=== PATIENT | female | born 1960 | race Caucasian/White ===

== ENCOUNTER 2018-09-30 09:58 | Inpatient (IN) | payer OTHER ==
[~2018-09-30] VITALS: Ht 162.6 cm; Wt 89.4 kg
[2018-09-30] MEDS ORDERED: LURA60TA PO (10:14)
[2018-09-30] MEDS ORDERED: CITA-106 PO (10:14)
[2018-09-30] MEDS ORDERED: ARIP5TAB8 PO (10:14)
[2018-09-30] MEDS ORDERED: ONDANSETRON HCL 4 MG/2 ML VIAL IVP ONE (11:15)
[2018-09-30] MEDS ORDERED: DICYCLOMINE HCL 20 MG TABLET PO ONE (11:15)
[2018-09-30] MEDS ORDERED: SODIUM CHLORIDE 0.9% 100 ML ONE (11:31)
[2018-09-30] MEDS ORDERED: IOVERSOL 350 MG/ML 150 ML VIAL ONE (11:31)
[2018-09-30 11:37] LABS: BASOPHILS % (AUTO) 0.5 % (0.0-2.0); EOSINOPHILS % (AUTO) 1.6 % (1.0-6.0); HEMATOCRIT 39.2 % (36-46); HEMOGLOBIN 13.2 g/dL (12.0-16.0); LYMPHOCYTES # (AUTO) 1.6 K/uL (1.0-4.8); LYMPHOCYTES % (AUTO) 15.8 % (22.0-44.0); MEAN CORPUSCULAR HEMOGLOBIN 30.2 pg (26.0-34.0); MEAN CORPUSCULAR HGB CONC 33.7 G/dL (31.0-37.0); MEAN CORPUSCULAR VOLUME 89 fL (80-100); MONOCYTES # (AUTO) 0.8 K/uL (0.1-1.0); MONOCYTES % (AUTO) 8.3 % (2.0-9.0); NEUTROPHILS # (AUTO) 7.3 K/uL (1.8-7.7); NEUTROPHILS % (AUTO) 73.8 % (40.0-70.0); PLATELET COUNT (AUTO) 253 K/uL (150-450); RED BLOOD CELL COUNT(AUTO) 4.39 MIL/uL (4.00-5.20); RED CELL DISTRIBUTION WIDTH 12.9 % (11.5-14.5)
[2018-09-30 11:48] LABS: ANION GAP 5 mmol/L (8-16); CALCIUM, TOTAL 9.2 mg/dL (8.8-10.5); CARBON DIOXIDE 32 mmol/L (22-29); CHLORIDE 97 mmol/L (98-107); CREATININE 0.72 mg/dL (0.60-1.30); GLOMERULAR FILTR. RATE CALC > 60 mL/min (>60); GLUCOSE,RANDOM 97 mg/dL (70-110); POTASSIUM 3.3 mmol/L (3.5-5.1); SODIUM SERUM 134 mmol/L (136-145); UREA NITROGEN, BLOOD 9 mg/dL (7-18)
[2018-09-30 11:56] LABS: ALANINE AMINOTRANSFERASE 94 U/L (12-78); ALBUMIN 2.7 g/dL (3.4-5.0); ALKALINE PHOSPHATASE 133 U/L (46-116); ASPARTATE AMINOTRANSFERASE 45 U/L (15-37); BILIRUBIN,TOTAL 0.4 mg/dL (0.1-1.0); LIPASE 103 U/L (73-393); TOTAL PROTEIN, SERUM 7.5 g/dL (6.4-8.2)
[2018-09-30 12:45] LABS: APPEARANCE,URINE CLEAR (CLEAR); BILIRUBIN,URINE NEGATIVE (NEGATIVE); GLUCOSE, URINE (UA) NEGATIVE (NEGATIVE); KETONES,URINE NEGATIVE (NEGATIVE); LEUKOCYTE ESTERASE ,URINE NEGATIVE (NEGATIVE); NITRATE,URINE NEGATIVE (NEGATIVE); OCCULT BLOOD,URINE SMALL (NEGATIVE); PROTEIN,URINE NEGATIVE (NEGATIVE); UROBILINOGEN,URINE 0.2 mg/dL (<=1.0)
[2018-09-30 12:49] LABS: BACTERIA,URINE None Seen /HPF (None Seen); RBC,URINE 0-2 /HPF (0-2); SQUAMOUS EPITHELIAL CELL,UR Few /LPF (None Seen); WBC,URINE None Seen /HPF (0-5)
[2018-09-30] MEDS ORDERED: MetroNIDAZOLE 500 MG/NACL 100 ML IV ONE (13:45)
[2018-09-30] MEDS ORDERED: CIPROFLOXACIN 400 MG/D5% WATER 200 ML IV ONE (13:45)
[2018-09-30] MEDS ORDERED: SODIUM CHLORIDE 0.9% 1,000 ML IV ONE ×2 (13:45→15:15)
[2018-09-30] MEDS ORDERED: ACETAMINOPHEN 325 MG TABLET PO PRN ×2 (15:00→15:15)
[2018-09-30] MEDS ORDERED: 0.9% SODIUM CHLORIDE 10 ML SYRINGE IVP PRN (15:00)
[2018-09-30] MEDS ORDERED: ONDANSETRON HCL 4 MG/2 ML VIAL IVP PRN (15:00)
[2018-09-30] MEDS ORDERED: BISACODYL 10 MG RECTAL RECTAL SUPPOSITORY PR PRN (15:15)
[2018-09-30] MEDS ORDERED: ZOLPIDEM TARTRATE 5 MG TABLET PO PRN (15:15)
[2018-09-30] MEDS ORDERED: MAGNESIUM HYDROXIDE SUSPENSION 30 ML UDCUP PO PRN (15:15)
[2018-09-30] MEDS ORDERED: HYDROCODONE/ACETAMINOPHEN 5-325 MG TABLET PO PRN (15:15)
[2018-09-30] MEDS ORDERED: POTASSIUM CHL 10 MEQ/WATER 50 ML IV PRN (15:15)
[2018-09-30] MEDS ORDERED: MORPHINE SULFATE 4 MG/ML SYRINGE IVP PRN (15:15)
[2018-09-30] MEDS: HEPARIN SODIUM,PORCINE 5,000 UNITS/ML VIAL SQ SCH ×2 (16:24→23:35)
[2018-09-30] MEDS: POTASSIUM CHLORIDE 20 MEQ ER TABLET PO PRN (16:50)
[2018-09-30 17:19] VITALS: BP 99/65
[2018-09-30] MEDS: DOCUSATE SODIUM 100 MG CAPSULE PO SCH (20:00)
[2018-09-30 20:10] VITALS: BP 111/64
[2018-09-30] MEDS: MetroNIDAZOLE 500 MG/NACL 100 ML IV SCH (22:30)
[2018-09-30 23:41] VITALS: BP 104/58
[2018-10-01] MEDS: CIPROFLOXACIN 400 MG/D5% WATER 200 ML IV SCH ×2 (02:47→17:12)
[2018-10-01 04:54] VITALS: BP 106/59
[2018-10-01] MEDS: MetroNIDAZOLE 500 MG/NACL 100 ML IV SCH ×3 (05:33→21:53)
[2018-10-01 06:26] LABS: BASOPHILS % (AUTO) 0.3 % (0.0-2.0); EOSINOPHILS % (AUTO) 1.4 % (1.0-6.0); HEMATOCRIT 35.8 % (36-46); HEMOGLOBIN 12.3 g/dL (12.0-16.0); LYMPHOCYTES # (AUTO) 1.2 K/uL (1.0-4.8); LYMPHOCYTES % (AUTO) 12.9 % (22.0-44.0); MEAN CORPUSCULAR HEMOGLOBIN 30.5 pg (26.0-34.0); MEAN CORPUSCULAR HGB CONC 34.4 G/dL (31.0-37.0); MEAN CORPUSCULAR VOLUME 89 fL (80-100); MONOCYTES # (AUTO) 0.8 K/uL (0.1-1.0); MONOCYTES % (AUTO) 8.7 % (2.0-9.0); NEUTROPHILS # (AUTO) 7.1 K/uL (1.8-7.7); NEUTROPHILS % (AUTO) 76.7 % (40.0-70.0); PLATELET COUNT (AUTO) 246 K/uL (150-450); RED BLOOD CELL COUNT(AUTO) 4.04 MIL/uL (4.00-5.20); RED CELL DISTRIBUTION WIDTH 12.8 % (11.5-14.5)
[2018-10-01 06:58] LABS: ALANINE AMINOTRANSFERASE 70 U/L (12-78); ALBUMIN 2.3 g/dL (3.4-5.0); ALKALINE PHOSPHATASE 118 U/L (46-116); ANION GAP 6 mmol/L (8-16); ASPARTATE AMINOTRANSFERASE 31 U/L (15-37); BILIRUBIN,TOTAL 0.3 mg/dL (0.1-1.0); CALCIUM, TOTAL 8.9 mg/dL (8.8-10.5); CARBON DIOXIDE 29 mmol/L (22-29); CHLORIDE 103 mmol/L (98-107); GLOMERULAR FILTR. RATE CALC > 60 mL/min (>60); GLUCOSE,RANDOM 98 mg/dL (70-110); POTASSIUM 3.8 mmol/L (3.5-5.1); SODIUM SERUM 138 mmol/L (136-145); TOTAL PROTEIN, SERUM 6.8 g/dL (6.4-8.2); UREA NITROGEN, BLOOD 5 mg/dL (7-18)
[2018-10-01 08:00] VITALS: BP 109/68
[2018-10-01] MEDS: HEPARIN SODIUM,PORCINE 5,000 UNITS/ML VIAL SQ SCH ×3 (08:00→23:41)
[2018-10-01 11:34] VITALS: BP 118/69
[2018-10-01] MEDS: DOCUSATE SODIUM 100 MG CAPSULE PO SCH ×2 (15:45→20:29)
[2018-10-01] MEDS: PANTOPRAZOLE SODIUM 40 MG DR TABLET PO SCH (15:45)
[2018-10-01 16:00] VITALS: BP 119/67
[2018-10-01] MEDS ORDERED: BUPIVACAINE 0.25%/EPI 1:200,000/PF 10 ML VIAL ONE (17:35)
[2018-10-01] MEDS ORDERED: SODIUM CHLORIDE 0.9% 1,000 ML IV ONE (17:35)
[2018-10-01] MEDS ORDERED: RINGERS SOLUTION,LACTATED 1,000 ML IV ONE (17:36)
[2018-10-01] MEDS ORDERED: ACETAMINOPHEN 1000 MG/ISO-OSM 100 ML IV ONE (17:44)
[2018-10-01] MEDS ORDERED: LIDOCAINE/PF 2% 5 ML VIAL ONE (18:14)
[2018-10-01] MEDS ORDERED: DEXAMETHASONE SOD PHOS 4 MG/ML VIAL ONE (18:14)
[2018-10-01] MEDS ORDERED: HYDROmorphone 2 MG/ML SYRINGE IVP PRN (19:45)
[2018-10-01] MEDS ORDERED: OxyCODONE HCL/ACETAMINOPHEN 10-325 MG TABLET PO PRN (19:45)
[2018-10-01 20:12] VITALS: BP 110/65
[2018-10-01] MEDS: ONDANSETRON HCL 4 MG/2 ML VIAL IVP PRN (20:25)
[2018-10-01] MEDS: ACETAMINOPHEN 500 MG TABLET PO SCH (23:41)
[2018-10-01 23:47] VITALS: BP 113/65
[2018-10-02] MEDS: CIPROFLOXACIN 400 MG/D5% WATER 200 ML IV SCH ×2 (03:05→15:44)
[2018-10-02] MEDS: KETOROLAC TROMETHAMINE 30 MG/ML VIAL IVP SCH ×4 (03:06→21:05)
[2018-10-02 04:28] VITALS: BP 103/61
[2018-10-02] MEDS: ACETAMINOPHEN 500 MG TABLET PO SCH ×3 (05:27→18:04)
[2018-10-02] MEDS: MetroNIDAZOLE 500 MG/NACL 100 ML IV SCH ×3 (05:27→21:04)
[2018-10-02] MEDS ORDERED: ROCURONIUM BROMIDE 10 MG/ML 5 ML VIAL IVP ONE (05:34)
[2018-10-02] MEDS ORDERED: MIDAZOLAM HCL 2 MG/2 ML VIAL IVP ONE (05:34)
[2018-10-02] MEDS ORDERED: SUCCINYLCHOLINE CHLORIDE 20 MG/ML 10 ML VIAL IVP ONE (05:34)
[2018-10-02] MEDS ORDERED: LIDOCAINE/PF 2% 5 ML VIAL IM ONE (05:34)
[2018-10-02] MEDS ORDERED: KETAMINE HCL 50 MG/ML 10 ML VIAL IVP ONE (05:34)
[2018-10-02] MEDS ORDERED: KETOROLAC TROMETHAMINE 60 MG/2 ML VIAL IM ONE (05:34)
[2018-10-02] MEDS ORDERED: PROPOFOL 1% 20 ML VIAL IVP ONE (05:34)
[2018-10-02] MEDS ORDERED: ONDANSETRON HCL 4 MG/2 ML VIAL IVP ONE (05:34)
[2018-10-02] MEDS ORDERED: GLYCOPYRROLATE 0.2 MG/ML VIAL IM ONE (05:34)
[2018-10-02] MEDS ORDERED: NEOSTIGMINE METHYLSULFATE 1 MG/ML 10 ML VIAL IVP ONE (05:34)
[2018-10-02 05:50] LABS: BASOPHILS % (AUTO) 0.1 % (0.0-2.0); EOSINOPHILS % (AUTO) 0 % (1.0-6.0); HEMATOCRIT 38.3 % (36-46); HEMOGLOBIN 13.3 g/dL (12.0-16.0); LYMPHOCYTES # (AUTO) 0.8 K/uL (1.0-4.8); LYMPHOCYTES % (AUTO) 5.5 % (22.0-44.0); MEAN CORPUSCULAR HEMOGLOBIN 31.1 pg (26.0-34.0); MEAN CORPUSCULAR HGB CONC 34.6 G/dL (31.0-37.0); MEAN CORPUSCULAR VOLUME 90 fL (80-100); MONOCYTES # (AUTO) 0.5 K/uL (0.1-1.0); MONOCYTES % (AUTO) 3.8 % (2.0-9.0); NEUTROPHILS # (AUTO) 12.4 K/uL (1.8-7.7); PLATELET COUNT (AUTO) 254 K/uL (150-450); RED BLOOD CELL COUNT(AUTO) 4.26 MIL/uL (4.00-5.20); RED CELL DISTRIBUTION WIDTH 12.7 % (11.5-14.5)
[2018-10-02 05:53] LABS: NEUTROPHILS % (AUTO) 90.6 % (40.0-70.0)
[2018-10-02 06:03] LABS: CALCIUM, TOTAL 9.2 mg/dL (8.8-10.5); CREATININE 0.96 mg/dL (0.60-1.30); POTASSIUM 3.4 mmol/L (3.5-5.1)
[2018-10-02] MEDS ORDERED: SODIUM CHLORIDE 0.9% 500 ML IV ONE (06:20)
[2018-10-02] MEDS: POTASSIUM CHLORIDE 20 MEQ ER TABLET PO PRN (06:24)
[2018-10-02 07:45] VITALS: BP 98/57
[2018-10-02] MEDS: PANTOPRAZOLE SODIUM 40 MG DR TABLET PO SCH (08:41)
[2018-10-02] MEDS: HEPARIN SODIUM,PORCINE 5,000 UNITS/ML VIAL SQ SCH ×2 (08:41→15:44)
[2018-10-02] MEDS: DOCUSATE SODIUM 100 MG CAPSULE PO SCH ×2 (08:41→21:05)
[2018-10-02 13:10] VITALS: BP 106/64
[2018-10-02 15:58] VITALS: BP 116/71
[2018-10-02] MEDS: ONDANSETRON HCL 4 MG/2 ML VIAL IVP PRN (18:05)
[2018-10-02 20:02] VITALS: BP 104/61
[2018-10-03 00:22] VITALS: BP 98/53
[2018-10-03] MEDS: HEPARIN SODIUM,PORCINE 5,000 UNITS/ML VIAL SQ SCH ×3 (01:16→16:00)
[2018-10-03] MEDS: ACETAMINOPHEN 500 MG TABLET PO SCH ×3 (01:16→12:00)
[2018-10-03] MEDS: KETOROLAC TROMETHAMINE 30 MG/ML VIAL IVP SCH ×2 (02:55→08:22)
[2018-10-03] MEDS: CIPROFLOXACIN 400 MG/D5% WATER 200 ML IV SCH ×2 (02:55→15:28)
[2018-10-03 05:01] VITALS: BP 104/63
[2018-10-03] MEDS: MetroNIDAZOLE 500 MG/NACL 100 ML IV SCH ×2 (05:56→14:14)
[2018-10-03 07:50] LABS: BASOPHILS % (AUTO) 0.4 % (0.0-2.0); HEMATOCRIT 34.9 % (36-46); HEMOGLOBIN 11.9 g/dL (12.0-16.0); LYMPHOCYTES # (AUTO) 1.9 K/uL (1.0-4.8); LYMPHOCYTES % (AUTO) 17.2 % (22.0-44.0); MEAN CORPUSCULAR HEMOGLOBIN 30.3 pg (26.0-34.0); MEAN CORPUSCULAR VOLUME 89 fL (80-100); MONOCYTES # (AUTO) 0.7 K/uL (0.1-1.0); MONOCYTES % (AUTO) 6.1 % (2.0-9.0); NEUTROPHILS # (AUTO) 8.3 K/uL (1.8-7.7); NEUTROPHILS % (AUTO) 75.3 % (40.0-70.0); PLATELET COUNT (AUTO) 236 K/uL (150-450); RED BLOOD CELL COUNT(AUTO) 3.92 MIL/uL (4.00-5.20); RED CELL DISTRIBUTION WIDTH 13.1 % (11.5-14.5)
[2018-10-03 07:57] LABS: ANION GAP 5 mmol/L (8-16); CALCIUM, TOTAL 8.7 mg/dL (8.8-10.5); CARBON DIOXIDE 29 mmol/L (22-29); CHLORIDE 103 mmol/L (98-107); CREATININE 0.71 mg/dL (0.60-1.30); GLOMERULAR FILTR. RATE CALC > 60 mL/min (>60); GLUCOSE,RANDOM 104 mg/dL (70-110); POTASSIUM 3.8 mmol/L (3.5-5.1); SODIUM SERUM 137 mmol/L (136-145); UREA NITROGEN, BLOOD 8 mg/dL (7-18)
[2018-10-03 08:20] VITALS: BP 112/61
[2018-10-03] MEDS: PANTOPRAZOLE SODIUM 40 MG DR TABLET PO SCH (08:21)
[2018-10-03] MEDS: DOCUSATE SODIUM 100 MG CAPSULE PO SCH (08:21)
[2018-10-03 12:08] VITALS: BP 117/70
[2018-10-03] MEDS ORDERED: CIPR-278 PO (14:34)
[2018-10-03] MEDS ORDERED: METR500 PO (14:35)
[2018-10-03 15:33] VITALS: BP 128/72
== END 2018-10-03 17:50 | disposition home or self-care (01) | DRG 233 ==
LOC: EMS 09:59 → 6N 15:24
PROVIDERS: ADMIT Internal Medicine; ATTEND Internal Medicine
PROC: 0DTJ4ZZ Resection of Appendix, Percutaneous Endoscopic Approach (ICD-10-PCS; principal; 2018-10-01 18:00)
DX: K35.33 Acute appendicitis with perforation, localized peritonitis, and gangrene, with abscess (principal); E43 Unspecified severe protein-calorie malnutrition; E87.1 Hypo-osmolality and hyponatremia; F20.9 Schizophrenia, unspecified; E87.6 Hypokalemia; K42.9 Umbilical hernia without obstruction or gangrene; F32.9 Major depressive disorder, single episode, unspecified; Z88.0 Allergy status to penicillin; Z79.899 Other long term (current) drug therapy; Z90.49 Acquired absence of other specified parts of digestive tract
CPT/HCPCS: 74177; 83605; 84132; 87081; 88304; 96365; 96366; 96368; 96375; G0378; J0131; J0330; J0744; J1100; J1644; J1885; J2250; J2405; J2704; J3490; J7030; J7040; J7050; J7120

== ENCOUNTER 2021-09-18 12:53 | Emergency (ER) | payer OTHER ==
[~2021-09-18] VITALS: Ht 162.6 cm; Wt 93.2 kg
[~2021-09-18 12:53] MED LIST: ARIP5TAB37 PO; CIPR-278 PO; CITA-144 PO; LURA60TA PO; METR500 PO
[2021-09-18] MEDS ORDERED: ACETAMINOPHEN 500 MG TABLET PO ONE (14:00)
[2021-09-18 15:57] VITALS: BP 131/72
== END 2021-09-18 16:10 | disposition home or self-care (01) ==
LOC: EMS 12:57
DX: S80.212A Abrasion, left knee, initial encounter (principal); M25.562 Pain in left knee; W01.0XXA Fall on same level from slipping, tripping and stumbling without subsequent striking against object, initial encounter; Y93.89 Activity, other specified; Y92.89 Other specified places as the place of occurrence of the external cause; Y99.8 Other external cause status
CPT/HCPCS: 99284; 73562-TC; 73610-TC; Z7502; Z7610